=== PATIENT | female | born 1990 | race Caucasian/White ===

== ENCOUNTER 2025-02-13 17:35 | Emergency (ER) | payer OTHER, SELFPAY ==
[2025-02-13] VITALS (12 sets, daily range): BP systolic 87–113; BP diastolic 64–88; PULSE 77–109; BMI 34.8
--- NOTE | 2025-02-13 18:28 | ED.GENMED ---
History of Present Illness
General
Chief Complaint: Dizziness
Source: patient
Exam Limitations: none
Time Seen by Provider: 02/13/25 18:15
Nursing documentation reviewed up to this point in time: agreed with
History of Present Illness
History of Present Illness:
Patient is a 34-year-old female with history of CHF who presents to the emergency department for evaluation of intermittent lightheadedness ongoing for the past few months. Patient reports numerous episodes of near fainting occurring both at
sitting and standing. She denies any other symptoms including fever, chills, chest pain, shortness of breath. She has not noticed any lower extremity swelling or weight gain. No dizziness or sensation of movement. No headaches. Patient is on a
fluid restriction to 64 ounces per day.
She states that she has been noticing low blood pressure at home in the 80s. However on arrival to emergency department her blood pressure was normal at 113/88.
Of note�patient states that she was diagnosed with CHF last year after experiencing shortness of breath. At that time�her ejection fraction was apparently 15%. She is followed by [facility] and currently takes Farxiga however has been unable
to take the medication over the past few days given her low blood pressure.
Patient states that she was recently admitted at [facility] in the observation unit last week for similar symptoms and she was discharged. She states that her most recent echo showed that her ejection fraction is now closer to 37%.
Review of Systems
Review of Systems
Allergies reviewed?: Yes
All Other Systems: ROS reviewed and negative except as documented in HPI and ROS
Phy Exam
Physical Exam
Physical Exam:
Vitals: Patient's vital signs are stable. Afebrile
General: Patient is well appearing, no acute distress. Nontoxic appearing
Skin: Warm and dry, no rashes or lesions
Head: Normocephalic, atraumatic
Eyes: Sclera nonicteric.
Throat: Protecting airway
Neck: Normal ROM, no cervical spine tenderness, no meningismus. No JVD
Cardiac: Regular rate and rhythm, no murmurs.
Pulm: Normal respiratory effort, no wheezes, rales, rhonchi heard on exam
.
Abdomen: No abdominal tenderness.
Extremities: No evidence of cyanosis or edema
Neuro: AAOx3. Grossly intact.
Psychiatric: Normal affect.
Course
Orders/Labs/Results
Orders:
Orders
02/13/25 17:36
EKG [Electrocardiogram (*1)] Stat
Reason for Study: Vertigo / Dizzy
EKG- Treatment ONCE
02/13/25 18:27
Orthostatic VS- Treatment ONCE
CR Chest - 2 Views Urgent
Comment:
Reason For Exam: lightheadedness, CHF
02/13/25 18:54
Comprehensive Metabolic Panel Urgent
NT-proBNP Urgent
Troponin I Urgent
02/13/25 19:35
Complete Blood Count/With Diff Urgent
02/13/25 20:56
0.9% Sodium Chloride 250 ml [Nss] 250 ml IV BOLUS
02/13/25 22:01
Interrogate Pacemaker- Treatment ONCE
Abnormal Lab Results
02/13/25
18:54
Chloride 109 H mmol/L
(98-107)
Carbon Dioxide 19 L mmol/L
(22-30)
Creatinine 0.5 L mg/dL
(0.6-1.0)
Glucose 154 H mg/dl
(70-99)
02/13/25 19:35
02/13/25 18:54
Vital Signs
Initial and Last Documented VS:
Initial Vital Signs
Temp Pulse Resp BP Pulse Ox
98.8 F 102 18 113/88 97
02/13/25 17:37 02/13/25 17:37 02/13/25 17:37 02/13/25 17:37 02/13/25 17:37
Last Documented Vital Signs
Temp Pulse Resp BP Pulse Ox
98.8 F 91 16 102/69 98
02/13/25 17:37 02/13/25 22:50 02/13/25 22:50 02/13/25 22:50 02/13/25 22:50
MDM/Problems Addressed
Differential Diagnosis Includes:
Not limited to: Acute dehydration, orthostatic hypotension, electrolyte abnormalities, CHF exacerbation, viral illness, etc.
MDM/Problems Addressed:
34-year-old female presenting with intermittent lightheadedness for the past many months not associate with any fever, chest pain, shortness of breath, dizziness. She does have somewhat recent diagnosis of CHF in the past year. She has noticed low
blood pressure readings at home preventing her from taking her Farxiga. She is followed by [facility] and was recently admitted to [facility] for similar symptoms. Patient has stable vital signs on my initial evaluation. On
exam�patient is well-appearing, in no apparent distress. Heart regular rate and rhythm, lungs clear bilaterally. No evidence of lower extremity swelling on exam. Will check labs, chest x-ray given lightheadedness and known CHF. Apparently last
EF was 35% and patient currently on fluid restriction to 64 ounces�will hold fluids at this time. Will closely monitor and reassess.
Update: Labs reviewed. No clinically significant abnormalities. proBNP of 478 which is around patient's baseline with normal chest x-ray. Patient was found to be mildly orthostatic was given a small bolus of IV fluids in the emergency department.
Suspect symptoms likely orthostasis secondary to dehydration with fluid restriction. Will consider further IV fluids in the will hold for now given significantly decreased ejection fraction failure. She is feeling better. No evidence of CHF
exacerbation. Patient feels stable for discharge home. Strict return precautions discussed. She will contact her private tutor tomorrow.
Of note: Did attempt interrogate patient's ICD multiple times which was unsuccessful. While I feel this likely unrelated in symptoms secondary to orthostatic hypotension, unable to rule out possible underlying arrhythmia without interrogation.
Patient feels well and would like to be discharged home and understands the risk of not completing device interrogation. She will contact her private tutor tomorrow to ensure her device is working properly.
Chronic conditions affecting care:
Congestive heart failure
Acute Exacerbation and/or Progression of Chronic Illness:
N/A
*Pulse Oximetry
SaO2: 97
Oxygen Mode of Delivery: Room air
Patient hypoxic: no
*EKG
Interpreted by ED Provider?: Yes
Interpretation: abnormal
Comparison EKG: no comparison EKG present
Heart Rate: 97
Rate: normal
Rhythm: sinus
Henry: normal axis
Interval: normal QT interval
QRS Pattern: normal QRS
Ischemia: non-specific ST changes
*Excavator Operator Interpretation
Rate: normal
Interpretation: normal
Heart Rate: 88
Rhythm: sinus
*Critical Care Note
Total Time (30-74mins, 75-104mins- exclusive of procedures): Not Applicable
ED Attending Note
-
Portions of this chart may have been created with voice recognition software.� Occasional wrong word or��sound alike� substitutions may have occurred due to the inherent limitations of voice recognition software.
Discharge Plan
Departure
Patient Disposition: Home (Routine Discharge)
Date of Disposition: 02/13/25
Time of Disposition: 21:56
Patient with high blood pressure during this ER visit?: No
Discharge Problem:
Orthostatic hypotension, Lightheadedness
Instructions: Near Fainting (DC), Hypovolemia in adults
Referrals:
UNKNOWN - PT DOES,NOT KNOW [Family Provider]
Activity Restrictions/Additional Instructions:
RETURN TO THE EMERGENCY DEPARTMENT WITH ANY CHEST PAIN, SHORTNESS OF BREATH, PERSISTENT DIZZINESS/LIGHTHEADEDNESS, EPISODES OF FAINTING, SIGNS OF SEVERE DEHYDRATION, WORSENING IN CURRENT SYMPTOMS, OR ANY OTHER CONCERNS
- As discussed�your lab work showed no acute abnormalities today. Your proBNP was 478.
- I suspect a degree of your symptoms is likely related to dehydration. You were given a small amount of IV fluids while in the emergency department.
- We will contact you if your defibrillator has any abnormalities noted on report.
- Please follow-up with your private tutor tomorrow for further evaluation/management.
Monitor your symptoms closely and return to the emergency department with any acute worsening/new symptoms or other concerns
Interventions
Interventions:
*Risk Screen - Suicide Last Done: 02/13/25 17:37
*General Assessment Last Done: 02/13/25 18:39
*Neglect/Abuse Screening Last Done: 02/13/25 17:37
*ED- Fall Risk Assessment Last Done: 02/13/25 18:39
*ED COVID-19 Vaccine History Last Done: 02/13/25 18:39
*Nursing Disposition Last Done: 02/13/25 22:50
ED- Neurological Assessment Last Done: 02/13/25 18:39
Discharge Date and Time
Discharge Date/Time: 02/13/25 22:50
Print Language: [id number]
[2025-02-13 19:20] LABS: ALT (SGPT) 32 U/L (0-35); AST (SGOT) 30 U/L (14-36); Albumin 4.9 g/dl (3.5-5.0); Alkaline Phosphatase 68 U/L (38-126); Blood Urea Nitrogen 13 mg/dl (7-17); Calcium 9.6 mg/dl (8.4-10.2); Carbon Dioxide 19 mmol/L (22-30); Chloride 109 mmol/L (98-107); Estimated Creatinine Clearance > 125 ml/min; Glucose 154 mg/dl (70-99); Potassium 4.5 mmol/L (3.5-5.1); Sodium 138 mmol/L (135-145); Total Bilirubin 0.9 mg/dl (0.2-1.3); eGFR > 60.00
[2025-02-13 19:31] LABS: NT-proBNP 478 pg/ml; Troponin I < 0.012 ng/ml
[2025-02-13 19:49] LABS: % Eosinophils 1.3 % (0-6); % Immature Granulocytes 0.2 % (0-0.5); % Lymphocytes 37.1 % (20.5-51.1); % Monocytes 6.2 % (1.7-9.3); % Neutrophils 54.2 % (42.2-75.2); Absolute Basophils 0.1 10^3/uL (0-0.2); Absolute Eosinophils 0.1 10^3/uL (0-0.7); Absolute Lymphocytes 3.1 10^3/uL (1.2-3.4); Absolute Monocytes 0.5 10^3/uL (0.1-0.6); Absolute Neutrophils 4.6 10^3/uL (1.4-6.5); Hematocrit 42.1 % (37.0-47.0); Hemoglobin 15.1 g/dL (12.0-16.0); Mean Corp Hgb Conc. 35.9 g/dL (33.0-37.0); Mean Corpuscular Hgb 30.1 pg (27.0-31.0); Mean Platelet Volume 9.4 fL (7.4-10.4); Nucleated Red Blood Cells % 0 %; Platelet Count 278 10^3/uL (130-400); Red Blood Cell Count 5.01 10^6/uL (4.20-5.40); White Blood Cell Count 8.4 10^3/uL (4.8-10.8)
[2025-02-13] MEDS: NSS 250 IV (21:06)
== END 2025-02-13 22:50 | disposition home or self-care (01) ==
LOC: EMR 17:35
PROVIDERS: Physician Assistant; EMERGENCY PHYSICIAN Emergency Medicine
DX: I95.1 Orthostatic hypotension (principal); R42 Dizziness and giddiness; I50.9 Heart failure, unspecified; Z79.899 Other long term (current) drug therapy
CPT/HCPCS: 99285; 96360; 71046; 80053; 83880; 84484; 85025; 93005